=== PATIENT | male | born 1975 | race Caucasian/White ===

== ENCOUNTER 2017-01-24 20:10 | Emergency (ER) | payer SELFPAY | END 2017-01-25 01:45 | disposition home or self-care (01) | LOC: ER1 20:10 | DX: J11.1 Influenza due to unidentified influenza virus with other respiratory manifestations (principal) | CPT/HCPCS: 87081; 87880; 99283; J7120 ==

== ENCOUNTER 2020-11-14 21:09 | Emergency (ER) | payer OTHER ==
[~2020-11-14 21:09] MED LIST: HYDROCHLOROTHIA25 MG PO; LISINOPRIL-HCT1 EACH PO; LISINOPRIL20 MG PO
[2020-11-14 22:01] LABS: HEMOGLOBIN 13.6 gm/dl (14.0-17.5); RED BLOOD COUNT 4.89 M/UL (4.20-5.50); WHITE BLOOD COUNT 5.5 K/UL (4.5-11.0)
[2020-11-14 22:12] LABS: BUN/CREATININE RATIO 22 (0-10)
== END 2020-11-14 23:10 | disposition left against medical advice (07) ==
LOC: ER1 21:09
PROVIDERS: Physician Assistant
DX: R07.9 Chest pain, unspecified (principal); F19.90 Other psychoactive substance use, unspecified, uncomplicated; M54.2 Cervicalgia; I49.9 Cardiac arrhythmia, unspecified; F17.210 Nicotine dependence, cigarettes, uncomplicated; Z53.20 Procedure and treatment not carried out because of patient's decision for unspecified reasons; Z20.822 Contact with and (suspected) exposure to COVID-19
CPT/HCPCS: 71045; 80053; 82550; 82553; 83605; 83874; 83880; 84484; 85025; 85610; 85730; 86140; 87040; 93005; 99285; Q9967; U0002

== ENCOUNTER 2021-09-01 13:02 | Emergency (ER) | payer OTHER | END 2021-09-01 13:16 | disposition left against medical advice (07) | LOC: ER1 13:02 | DX: Z53.21 Procedure and treatment not carried out due to patient leaving prior to being seen by health care provider (principal) ==